=== PATIENT | male | born 1995 | race African-American/Black ===

== ENCOUNTER 2016-11-24 15:51 | Emergency (ER) | payer OTHER ==
[~2016-11-24] VITALS: Ht 180.3 cm; Wt 63.5 kg
[~2016-11-24 15:51] MED LIST: MOTRIN800 MG PO
--- NOTE | 2016-11-24 16:56 | ED GENERAL ADULT ---
History of Present Illness General Chief Complaint: Low Back Pain/Injury Stated Complaint: LOW BACK PAIN Source: patient Exam Limitations: no limitations Vital Signs & Intake/Output Vital Signs & Intake/Output Vital Signs Date Time Temp Pulse Resp B/P Pulse O2 O2 Flow FiO2 Ox Delivery Rate 11/24 1940 97.5 90 18 128/69 99 Room Air 11/24 1603 98.3 97 18 134/95 98 Room Air Allergies Coded Allergies: iodine (ITCHY AND HIVES ALL OVER 11/24/16) shrimp (ITCHY AND HIVES ALL OVER BODY 11/24/16) Reconcile Medications Cyclobenzaprine HCl 10 MG TABLET 1 TAB PO BID PRN PAIN Ibuprofen 800 MG TABLET 1 TAB PO Q8H PAIN (Reported) Tramadol HCl 50 MG TABLET 1-2 TAB PO DAILY PAIN (Reported) Triage Note: REPORTS MID TO UPPER BACK PAIN AND STIFF NECK S/P PHYSICAL THERAPY. REPORTS HE WAS INJURED AT WORK (R SHOULDER) AND IS CURRENTLY UNDER WORKERS COMPENSATION PROGRAM FOR THIS MATTER. Triage Nurses Notes Reviewed? yes Onset: Abrupt Duration: week(s): Timing: recent history HPI: 11/24/16 6 pm 21-year-old man presents to the emergency department with upper thoracic back pain. The patient states that he had an injury to his right shoulder and was getting physical therapy approximately 2 weeks ago. He had PT and subsequent to that he developed upper thoracic muscle pain. He said that is been ongoing now for the past 2 weeks. He has no lower extremity focal weakness but admits to pain and generalized weakness. No fever, no other complaints. On physical exam he has upper thoracic muscle pain. tenderness in the midline. No lower extremity neurological deficits were identified. Past medical history is otherwise negative The patient has tried ibuprofen, prednisone and Percocet with minimal relief Past History Travel History Traveled to [place] past 21 day No Medical History Any Pertinent Medical History? see below for history Surgical History Surgical History: non-contributory Psychosocial History What is your primary language Danish Tobacco Use: Never used Family History Hx Contributory? No Review of Systems Review of Systems Constitutional: Denies: fever. EENTM: Denies: visual changes. Respiratory: Denies: short of breath. Cardiovascular: Denies: chest pain. GI: Denies: abdominal pain. Genitourinary: Denies: hematuria. Musculoskeletal: Reports: back pain. Skin: Denies: rash. Neurological/Psychological: Denies: headache, tremors, weakness. Hematologic/Endocrine: Denies: bruising, bleeding. Physical Exam Physical Exam General Appearance: alert, awake, anxious, mild distress Head: atraumatic, normal appearance Eyes: Bilateral: normal appearance, PERRL, EOMI. Ears, Nose, Throat: normal pharynx, normal ENT inspection Neck: normal inspection, supple, full range of motion Respiratory: normal breath sounds, chest non-tender, no respiratory distress Cardiovascular: regular rate/rhythm Peripheral Pulses: 4+ radial (R), 4+ radial (L) Gastrointestinal: non-tender Back: decreased range of motion, he has tenderness to the thoracic paravertebral muscles Extremities: normal range of motion Neurologic/Psych: no motor/sensory deficits, awake, alert, oriented x 3, no weakness to hip flexion and bowling ball molder strength Skin: intact, normal color, warm/dry Core Measures ACS in differential dx? No CVA/TIA Diagnosis: No Severe Sepsis Present: No Septic Shock Present: No Progress Differential Diagnoses I considered the following diagnoses in my evaluation of the patient: [Thoracic strain, disc herniation, epidural abscess, transverse myelitis] Plan of Care: Orders Procedure Date/time Status XRY-THORACOLUMBAR SPINE 11/24 1738 Active Initial ED EKG: none Departure Departure Disposition: HOME OR SELF CARE Condition: Stable Clinical Impression Primary Impression: Thoracic myofascial strain Referrals: PATIENT HAS NO PRIMARY CARE DR (PCP/Family) Departure Forms: Customer Survey General Discharge Information Prescriptions: Current Visit Scripts Cyclobenzaprine HCl 1 TAB PO BID PRN PAIN #20 TAB Comments Thoracic x-ray showing below PATIENT: PEARL RAMOS PRESENT AGE: 21 PATIENT ACCOUNT NO: [id number] : 96 LOCATION: [facility] ORDERING PHYSICIAN: PILAR CURIEL DO SERVICE DATE: 11/24/16 EXAM TYPE: RAD - XRY-THORACOLUMBAR SPINE EXAMINATION: XR THORACOLUMBAR SPINE CLINICAL INFORMATION: Back pain COMPARISON: None TECHNIQUE: Frontal and lateral films of the lower thoracic and upper lumbar spine FINDINGS: Vertebral body height alignment and disc spaces maintained with no apparent fracture or subluxation and no focal bone lesion. No paraspinal mass or soft tissue swelling is appreciated. The lower lumbosacral spine is not optimally visualized on this examination. IMPRESSION: No acute bony or joint space abnormality is seen in frontal and lateral films of the lower thoracic and upper lumbar spine. DICTATED BY: THERESA BRITO MD DATE/TIME DICTATED:11/24/161824 PHOTOGRAMMETRIC STEREO COMPILER:CAL DATE/TIME TRANSCRIBED:11/24/161824 CONFIDENTIAL, DO NOT COPY WITHOUT APPROPRIATE AUTHORIZATION. <Electronically signed in Other Vendor System> SIGNED BY: THERESA BRITO MD 11/24 The patient was treated with by mouth Flexeril. Arrangements were made to him to follow-up with [facility]. He was told that should his symptoms persist he will need to get an MRI of his thoracic and lumbar spine. Critical Care Note Critical Care Note Critical Care Time: non-applicable
[2016-11-24] MEDS ORDERED: IBUPROFEN800 M1 PO (17:59)
[2016-11-24] MEDS ORDERED: TRAMADOL HCL50 M1 PO (18:00)
--- NOTE | 2016-11-24 18:31 | RADIOLOGY REPORT ---
EXAMINATION: XR THORACOLUMBAR SPINE CLINICAL INFORMATION: Back pain COMPARISON: None TECHNIQUE: Frontal and lateral films of the lower thoracic and upper lumbar spine FINDINGS: Vertebral body height alignment and disc spaces maintained with no apparent fracture or subluxation and no focal bone lesion. No paraspinal mass or soft tissue swelling is appreciated. The lower lumbosacral spine is not optimally visualized on this examination. IMPRESSION: No acute bony or joint space abnormality is seen in frontal and lateral films of the lower thoracic and upper lumbar spine.
[2016-11-24] MEDS ORDERED: CYCLOBENZAPRINE10 M1 PO (19:16)
[2016-11-24 19:40] VITALS: BP 128/69
== END 2016-11-24 19:41 ==
LOC: ERH 15:51
DX: S29.012A Strain of muscle and tendon of back wall of thorax, initial encounter (principal); X58.XXXA Exposure to other specified factors, initial encounter
CPT/HCPCS: 72080